=== PATIENT | male | born 1970 | race African-American/Black ===

== ENCOUNTER 2020-04-22 11:30 | Emergency (ER) | payer OTHER ==
[2020-04-22 11:36] VITALS: BP 122/85; PULSE 79; TEMP 98.9; BMI 28.2
[2020-04-22] MEDS ORDERED: TETRACAINE 0.5% HCL 0.6ML DROPPER.BOTTLE OD ONE (11:48)
[2020-04-22] MEDS ORDERED: FLUORESCEIN NA 1 EA STRIP OD ONE (11:48)
[2020-04-22] MEDS ORDERED: TETRACAINE 0.5% OPHTH SOLN 2 ML BOTTLE ONE (11:48)
[2020-04-22] MEDS ORDERED: FLUORESCEIN NA 1 EA STRIP ONE (11:49)
== END 2020-04-22 12:50 | disposition home or self-care (01) ==
LOC: FER 11:30
DX: S05.8X1A Other injuries of right eye and orbit, initial encounter (principal); S05.01XA Injury of conjunctiva and corneal abrasion without foreign body, right eye, initial encounter
CPT/HCPCS: 99283-25